=== PATIENT | male | born 1995 | race Caucasian/White ===

== ENCOUNTER 2016-04-05 23:59 | Emergency (ER) | payer OTHER ==
[~2016-04-05 23:59] MED LIST: AMOXICILLIN PO; AMOXIL500 M1 PO; AZITHROMYCIN250 MG PO; BACTRIM DS TABL1 TA1 PO; BACTROBAN22 GM TP; CLEOCIN PO; ERYTHROMYCIN O3.5 GM OS; IBUPROFEN PO; KEFLEX500 MG PO; MOTRIN IB200 M1 PO; NO MEDICATIONS; PATANOL5 ML OU; VOLTAREN75 MG PO
== END 2016-04-06 | disposition left against medical advice (07) ==
LOC: CED 23:59
DX: T40.1X1A Poisoning by heroin, accidental (unintentional), initial encounter (principal); F17.210 Nicotine dependence, cigarettes, uncomplicated
CPT/HCPCS: 99283